=== PATIENT | male | born 1930 | race Caucasian/White ===

== ENCOUNTER 2017-10-12 21:33 | Emergency (ER) | payer OTHER, MEDICARE ==
[~2017-10-12] VITALS: Ht 172.7 cm; Wt 73.9 kg
[2017-10-12 21:58] LABS: ABSOLUTE BASOPHIL COUNT 0 /CUMM (0.0-0.2); ABSOLUTE EOSINOPHIL COUNT 0 /CUMM (0.0-0.7); ABSOLUTE LYMPH COUNT 0.9 /CUMM (1.2-3.4); ABSOLUTE MONOCYTE COUNT 0.5 /CUMM (0.10-0.60); BASOPHIL % 0.4 % (0.0-2.0); EOSINOPHIL % 0.1 % (0-5); MEAN CORPUSCULAR HGB 33.2 PG (27.0-31.0); MEAN CORPUSCULAR HGB CONC 33.4 G/DL (33.0-37.0); MEAN CORPUSCULAR VOLUME 99.6 FL (80.0-94.0); MEAN PLATELET VOLUME 9.9 FL (7.4-10.4); PLATELET COUNT 185 /CUMM (130-400); RED BLOOD CELL CT 4.21 /CUMM (4.70-6.10); WHITE BLOOD CELL COUNT 9.5 /CUMM (4.8-10.8)
--- NOTE | 2017-10-12 22:03 | ED GENERAL ADULT ---
History of Present Illness General Chief Complaint: Syncope and Near-Syncope Stated Complaint: BIBA SYNCOPE Source: patient Exam Limitations: no limitations Vital Signs & Intake/Output Vital Signs & Intake/Output Vital Signs Date Time Temp Pulse Resp B/P B/P Pulse O2 O2 Flow FiO2 Mean Ox Delivery Rate 10/13 0104 97.4 46 18 135/91 98 Room Air 10/12 2311 97.6 78 18 123/78 98 Room Air 10/12 2152 Room Air 10/12 2138 97.8 74 18 145/67 96 Room Air ED Intake and Output 10/13 0000 10/12 1200 Intake Total 0 Output Total Balance 0 Intake, Oral 0 Patient 163 lb Weight Weight Reported by Patient Measurement Method Triage Note: PT BIBA FROM [facility]. PER EMS AFTER EATING PT SUDDENLY THREW UP THEN HAD SYNCOLPAL EPISODE AT TABLE. PER PT "I DON'T THINNK I FELL OUT OF MY CHAIR, I THINK IT LASTED 10 SECONDS OR SO". PT AOX3 AT THIS TIME OFFERING NO COMPLAINTS. Triage Nurses Notes Reviewed? yes Onset: Abrupt Duration: minute(s): (30), better, gone now Timing: single episode today Injury Environment: [facility] Severity: moderate, severe No Modifying Factors: none HPI: 86-year-old male history of atrial fibrillation on Coumadin, hypertension brought in by able to after syncopal episode. Patient was at a restaurant eating dinner when he suddenly felt nauseous and dizzy lightheaded diaphoretic he vomited and immediately afterwards had a syncopal episode. He did not fall or hit his head. He was unconscious for less than 10 seconds. When he woke up he returned to his baseline. Currently he offers no complaints. He never had chest pain shortness of breath or any other concerns. No nausea vomiting abdominal pain back pain fever. No palpitations. No headaches no slurred speech change in vision or one-sided weakness. (Suleman Humphries) Past History Travel History Traveled to [place] past 21 day No Medical History Any Pertinent Medical History? see below for history Cardiovascular: AFIB, hypertension Surgical History Surgical History: non-contributory Psychosocial History What is your primary language Slovak Tobacco Use: Quit >30 days ago ETOH Use: denies use Family History Hx Contributory? No (Suleman Humphries) Review of Systems Review of Systems Constitutional: Reports: no symptoms. EENTM: Reports: no symptoms. Respiratory: Reports: no symptoms. Cardiovascular: Reports: no symptoms. GI: Reports: vomiting. Genitourinary: Reports: no symptoms. Musculoskeletal: Reports: no symptoms. Skin: Reports: no symptoms. Neurological/Psychological: Reports: no symptoms. Hematologic/Endocrine: Reports: no symptoms. Immunologic/Allergic: Reports: no symptoms. All Other Systems: Reviewed and Negative (Suleman Humphries) Physical Exam Physical Exam General Appearance: well developed/nourished, no apparent distress, alert, awake Head: atraumatic, normal appearance Eyes: Bilateral: normal appearance, PERRL, EOMI. Ears, Nose, Throat: hearing grossly normal Neck: normal inspection, supple, full range of motion Respiratory: normal breath sounds, chest non-tender, no respiratory distress, lungs clear Cardiovascular: regular rate/rhythm, normal peripheral pulses Peripheral Pulses: 2+ radial (R), 2+ radial (L) Gastrointestinal: normal bowel sounds, soft, non-tender, no organomegaly Back: normal inspection, normal range of motion, no vertebral tenderness Extremities: normal inspection, normal range of motion, no edema Neurologic/Psych: no motor/sensory deficits, awake, alert, oriented x 3, normal gait, normal mood/affect Skin: intact, normal color, warm/dry Lymphatic: no anterior cervical an Core Measures ACS in differential dx? Yes CVA/TIA Diagnosis: No Sepsis Present: No Sepsis Focused Exam Completed? No (Suleman Humphries) Progress Differential Diagnoses I considered the following diagnoses in my evaluation of the patient: [ Arrhythmia, acute coronary syndrome, vasovagal, dehydration, intracranial hemorrhage, PE, CVA] Plan of Care: Orders Procedure Date/time Status TROPONIN LEVEL 10/13 0050 Complete EKG 10/13 0050 Active Telemetry/Equipment Sterilizer 10/13 2139 Active URINALYSIS 10/12 2138 Complete TROPONIN LEVEL 10/12 2138 Complete PARTIAL THROMBOPLASTIN TIME 10/12 2138 Complete PROTHROMBIN TIME 10/12 2138 Complete LIPASE 10/12 2138 Complete COMPREHENSIVE METABOLIC PANEL 10/12 2138 Complete CBC WITHOUT DIFFERENTIAL 10/12 2138 Complete EKG 10/12 2137 Active Laboratory Tests 10/13/17 0047: Troponin I < 0.01 10/12/17 2318: Urine Color YEL, Urine Clarity CLEAR, Urine pH 6.0, Ur Specific [place] 1.025, Urine Protein NEG, Urine Ketones NEG, Urine Nitrite NEG, Urine Bilirubin NEG, Urine Urobilinogen 4.0 H, Ur Leukocyte Esterase NEG, Ur Microscopic EXAM NOT REQUIRED, Urine Hemoglobin NEG, Urine Glucose NEG 10/12/172146: Anion Gap 9, Estimated GFR 48 L, BUN/Creatinine Ratio 17.1, Glucose 115 H, Calcium 9.0, Total Bilirubin 0.8, AST 29, ALT 35, Alkaline Phosphatase 64, Troponin I < 0.01, Total Protein 6.8, Albumin 4.0, Globulin 2.8, Albumin/ Globulin Ratio 1.4, Lipase 165, PT 27.2 H, INR 2.47 H, APTT 36, CBC w Diff NO MAN DIFF REQ, RBC 4.21 L, MCV 99.6 H, MCH 33.2 H, MCHC 33.4, RDW 15.0 H, MPV 9.9, Gran % 84.6 H, Lymphocytes % 9.9 L, Monocytes % 5.0, Eosinophils % 0.1, Basophils % 0.4, Absolute Granulocytes 8.0 H, Absolute Lymphocytes 0.9 L, Absolute Monocytes 0.5, Absolute Eosinophils 0, Absolute Basophils 0 Patient is here for evaluation after syncopal episode. The episode was preceded by nausea and dizziness lightheadedness and vomiting. Patient has no abdominal pain is soft and nontender he never had chest pain or shortness of breath. Initial EKG is unremarkable. Basic blood work head CT chest x-ray ordered. Patient remains asymptomatic on reevaluation. Blood work is unremarkable troponin negative chest x-ray clear. Patient will be kept in the emergency department for repeat EKG and troponin he then should be a little be discharged home safely. Case was discussed with Dr. Le who agrees with the plan patient will be signed out to Dr. Le pending repeat EKG and troponin Diagnostic Imaging: Viewed by Me: CT Scan. Discussed w/RAD: CT Scan. Radiology Impression: PATIENT: DIMITRI CARRERA PRESENT AGE: 86 PATIENT ACCOUNT NO: [id number] : 31 LOCATION: [facility] ORDERING PHYSICIAN: Suleman SIU SERVICE DATE: 10/12/17 EXAM TYPE: CAT - CT HEAD WO IV CONTRAST EXAMINATION: CT HEAD WITHOUT CONTRAST CLINICAL INFORMATION: Syncope, vomiting on blood thinners COMPARISON: None TECHNIQUE: Contiguous axial imaging was performed from the skull base to vertex without intravenous administration of contrast. DLP: 621 mGy-cm FINDINGS: There is no evidence of acute intracranial hemorrhage or territorial infarction. No abnormal mass effect or midline shift is seen. Forte to white matter differentiation is well preserved. No extra-axial fluid collections are identified. The ventricles and sulci are confidently moderately enlarged. There is mild low-attenuation within the periventricular and subcortical white matter. The osseous structures and soft tissues are normal. The mastoid air cells and visualized portions of the paranasal sinuses are well aerated. IMPRESSION: 1. No acute intracranial hemorrhage. 2. Moderate cerebral atrophy. 2. Mild chronic small vessel ischemic change. DICTATED BY: Flora Arias MD DATE/TIME DICTATED:10/12/172228 SOIL CHEMIST:FEDERICO DATE/TIME TRANSCRIBED:10/12/172228 CONFIDENTIAL, DO NOT COPY WITHOUT APPROPRIATE AUTHORIZATION. <Electronically signed in Other Vendor System> SIGNED BY: Flora Arias MD 10/12/172235 Initial ED EKG: normal sinus rhythm, LEFT AXIS, LEFT ATRIAL ABN Hand-Off Endorsed To: Stephen Le DO Endorsed Time: 106 Pending: EKG, labs (Suleman Humphries) Departure Departure Disposition: STILL A PATIENT Condition: Stable Clinical Impression Primary Impression: Syncope, vasovagal Additional Instructions: Follow-up with her primary care doctor and dealership manager as soon as possible to review all results of today's visit monitor your symptoms return with any concerns. Departure Forms: Customer Survey General Discharge Information (Suleman Humphries) Departure Comments 10/13/17 I've seen and personally examined the patient and I agree with the PAs evaluation. 86-year-old man with a past medical history of dementia. Status post vomiting and syncope. Head CT is negative. He is completely asymptomatic, EKG reveals normal sinus rhythm with first-degree AV block. Vital signs and labs are normal. Repeat EKG is unchanged serial troponins are negative (Stephen Le DO) Critical Care Note Critical Care Note Critical Care Time: non-applicable (Slueman Humphries)
[2017-10-12 22:09] LABS: PT 27.2 SEC (9.4-12.5); PTT 36 SEC (25-37)
[2017-10-12 22:23] LABS: GRANULOCYTE % 84.6 % (42.2-75.2)
--- NOTE | 2017-10-12 22:36 | CT SCAN REPORT ---
EXAMINATION: CT HEAD WITHOUT CONTRAST CLINICAL INFORMATION: Syncope, vomiting on blood thinners COMPARISON: None TECHNIQUE: Contiguous axial imaging was performed from the skull base to vertex without intravenous administration of contrast. DLP: 621 mGy-cm FINDINGS: There is no evidence of acute intracranial hemorrhage or territorial infarction. No abnormal mass effect or midline shift is seen. Forte to white matter differentiation is well preserved. No extra-axial fluid collections are identified. The ventricles and sulci are confidently moderately enlarged. There is mild low-attenuation within the periventricular and subcortical white matter. The osseous structures and soft tissues are normal. The mastoid air cells and visualized portions of the paranasal sinuses are well aerated. IMPRESSION: 1. No acute intracranial hemorrhage. 2. Moderate cerebral atrophy. 2. Mild chronic small vessel ischemic change.
--- NOTE | 2017-10-12 22:57 | RADIOLOGY REPORT ---
EXAMINATION: XR PORTABLE CHEST CLINICAL INFORMATION: Syncope COMPARISON: None TECHNIQUE: Portable frontal view of the chest was obtained. FINDINGS: The cardiac size is mildly enlarged. There is relative tortuous descent of the thoracic aorta. The mediastinal contours appear within normal limits. There is obscuration of the left hemidiaphragm which could be related to left lower lobe atelectasis versus developing consolidation. There may be a trace left pleural effusion. No right pleural effusion. The remainder of the lungs are clear. Surgical clips noted in the left lower neck. IMPRESSION: Possible developing left lower lobe pneumonia. Possible trace left pleural effusion. Mild cardiomegaly.
[2017-10-13 01:04] VITALS: BP 135/91
== END 2017-10-13 02:50 ==
LOC: ERH 21:33
PROVIDERS: Physician Assistant Medical
DX: R55 Syncope and collapse (principal); Z79.01 Long term (current) use of anticoagulants
CPT/HCPCS: 71045; 81003; 93005; 93010